=== PATIENT | female | born 1990 | race Caucasian/White ===

== ENCOUNTER 2016-04-28 12:57 | Observation (INO) ==
[2016-04-28] MEDS ORDERED: 0.9 % Sodium Chloride 1,000 ML IVC ONE (13:14)
[2016-04-28] MEDS ORDERED: *HR* HYDROmorphone (PF) 1 MG/ML SYRINGE IVP ONE (13:14)
[2016-04-28] MEDS ORDERED: Ondansetron 4 MG/2 ML VIAL IVP ONE ×2 (13:14→17:08)
--- NOTE | 2016-04-28 13:20 | Emergency Department Note ---
Disposition Clinical Impression: RUQ pain, Acute cholecystitis Cholelithiasis Qualifiers: Cholelithiasis location: gallbladder Cholecystitis presence: with cholecystitis Disposition: Admitted As Inpatient Condition: Fair Referrals: NO,PCP [Primary Care Provider] - Forms: Work/School Release, ED Satisfaction Letter General Adult HPI - General Chief complaint: ED Abdominal Pain Stated complaint: ABD pain Time Seen by Provider: 04/28/16 13:07 Source: patient Limitations: no limitations Nursing Notes Reviewed: Yes Vital Signs Reviewed: Yes - History of Present Illness HPI Narrative: 25-year-old female who reports she has had right upper quadrant pain for approximately 2 days. She states it was sudden onset. She has no prior history of this. She went to the [place] emergency department. Her basic lab work and ordered an outpatient ultrasound. She went today for her ultrasound and was sent here by the tabular typist due to concern for cholecystitis. She denies any fever. She has nausea and vomiting. She reports no past medical history and does not take any medications. Trying to eat makes the pain worse. Nothing makes them better. Radiation: non-radiation Pain Severity: severe Pain Scale: 8 Associated symptoms: Reports: denies other symptoms Treatments Prior to Arrival: none - Related Data Previous Rx's Medication Instructions Recorded Tramadol HCl [Ultram] 50 mg PO QID PRN #20 tab 04/27/16 OxyCODONE/APAP 5/325 [Percocet 1 each PO Q4HR PRN #14 tablet 04/28/16 5/325 MG] Allergies Allergy/AdvReac Type Severity Reaction Status Date / Time No Known Allergies Allergy Verified 04/28/16 04:21 All systems ED: reviewed and negative except as stated. Constitutional: Reports: chills Cardiovascular: Denies: chest pain Gastrointestinal: Reports: abdominal pain, nausea, vomiting Genitourinary: Denies: dysuria Integumentary: Denies: rash Past Medical History - Past Medical History Medical history: Reports: no medical history Psychiatric history: Reports: no psych history WATCH ASSEMBLER history: Reports: no WATCH ASSEMBLER history - Social History Smoking Status: Never smoker Smokeless Tobacco Status: No Alcohol use: Reports: none Drug use: Reports: none Physical Exam - General Limitations: no limitations General appearance: alert, in no apparent distress - Head Head exam: atraumatic - Eye Eye exam: Present: normal appearance - ENT ENT exam: normal exam, normal oropharynx - Neck Neck exam: Present: normal inspection - Chest Chest inspection: Present: normal inspection - Respiratory Respiratory exam: Present: normal lung sounds bilaterally. Absent: respiratory distress - Cardiovascular Cardiovascular exam: Present: regular rate, normal rhythm - Abdominal Exam Abdominal exam: Present: soft, tenderness (Right upper quadrant with positive Mcmahan sign. She has no generalized peritonitis or rebound. She does have some guarding on the right upper quadrant) - Extremities Exam Extremities exam: Present: normal inspection - Back Exam Back exam: Present: normal inspection - Neurological Exam Neurological exam: Present: alert, oriented X3 - Psychiatric Psychiatric exam: Present: normal affect, normal mood - Skin Skin exam: Present: warm, dry Course Course Narrative: On reviewing the ultrasound was performed earlier today there is concern for gallbladder wall thickness and possible pericholecystic fluid. I review the labs were drawn at 4:30 this morning where she did not have an elevated transaminitis or elevated bilirubin. She also denied a white count. She is not febrile for us. She is uncomfortable but is not in acute distress. We will treat her symptomatically with IV fluids, antiemetics, pain medication. I have called the general surgeon terminal operations supervisor Dr. Lopez who will evaluate the patient in the emergency department. - Reevaluation(s) Reevaluation #1: Accepted by Dr Lopez for admission. Vital Signs Temperature 98.2 F 04/28/16 13:02 Pulse Rate 98 04/28/16 13:02 Respiratory Rate 18 04/28/16 13:02 Blood Pressure 138/87 04/28/16 13:02 O2 Sat by Pulse Oximetry 100 04/28/16 13:02 Temperature 98.2 F 04/28/16 13:02 Pulse Rate 92 04/28/16 13:35 Respiratory Rate 18 04/28/16 13:35 Blood Pressure 123/81 04/28/16 13:35 O2 Sat by Pulse Oximetry 99 04/28/16 13:35 Oxygen Delivery Oxygen Delivery Room Air Medical Decision Making - Medical Records Medical records reviewed: Yes I reviewed the patient's medical records. - Lab Data Lab results reviewed: Yes I reviewed the patient's lab results. - Radiology Data Radiology results reviewed: Yes I reviewed the patient's radiology results.
--- NOTE | 2016-04-28 13:34 | Emergency Department Note ---
Disposition Clinical Impression: RUQ pain, Cholelithiasis, Acute cholecystitis Disposition: Admitted As Inpatient Condition: Fair General Adult HPI - General Chief complaint: ED Abdominal Pain Stated complaint: ABD pain Time Seen by Provider: 04/28/16 13:07 Source: patient Limitations: no limitations - History of Present Illness Pain Scale: 8 Associated symptoms: Reports: denies other symptoms Treatments Prior to Arrival: none - Related Data Previous Rx's Medication Instructions Recorded Tramadol HCl [Ultram] 50 mg PO QID PRN #20 tab 04/27/16 OxyCODONE/APAP 5/325 [Percocet 1 each PO Q4HR PRN #14 tablet 04/28/16 5/325 MG] Allergies Allergy/AdvReac Type Severity Reaction Status Date / Time No Known Allergies Allergy Verified 04/28/16 14:23 Constitutional: Reports: chills Cardiovascular: Denies: chest pain Gastrointestinal: Reports: abdominal pain, nausea, vomiting Genitourinary: Denies: dysuria Integumentary: Denies: rash Past Medical History - Past Medical History Medical history: Reports: no medical history Psychiatric history: Reports: no psych history ROTARY SOIL STABILIZER history: Reports: no ROTARY SOIL STABILIZER history - Social History Smoking Status: Never smoker Smokeless Tobacco Status: No Alcohol use: Reports: none Drug use: Reports: none Physical Exam - General Limitations: no limitations General appearance: alert, in no apparent distress Course - Reevaluation(s) Reevaluation #1: I saw the patient with the resident, Dr. Caldera. Patient presents with right upper quadrant abdominal pain for the past 2 days. She had normal labs done this morning close to 5:00 in the morning but was sent over here for an ultrasound of the gallbladder. Ultrasound showed the presence of gallstones and some thickening of the gallbladder wall and some pericholecystic fluid and a positive sonographic Mcmahan sign. There was concern for acute cholecystitis. Patient was sent over here to the emergency department to be evaluated. On exam she has tenderness in the right upper quadrant. She looks uncomfortable. We gave her medications for symptom relief. We spoke to the surgeon asset protection specialist and his people are coming down to evaluate the patient to decide the proper way to proceed from here. Time: 13:33 Vital Signs Temperature 98.2 F 04/28/16 13:02 Pulse Rate 98 04/28/16 13:02 Respiratory Rate 18 04/28/16 13:02 Blood Pressure 138/87 04/28/16 13:02 O2 Sat by Pulse Oximetry 100 04/28/16 13:02 Temperature 97.8 F 04/28/16 21:42 Pulse Rate 61 04/28/16 21:42 Respiratory Rate 16 04/28/16 21:42 Blood Pressure 113/71 04/28/16 21:42 O2 Sat by Pulse Oximetry 99 04/28/16 21:42 Oxygen Delivery Oxygen Delivery Room Air Attestation Statement - Attestation Attestation: I, Dr. Deng, examined this patient [id number] and my medical decision- making was reviewed with Dr. Caldera, Resident Physician. I agree with the documented findings, disposition and treatment plan as described except to the extent set forth below. Please see my progress notes for details.
--- NOTE | 2016-04-28 14:57 | General Surg History&Physical ---
<Lloyd Ferro - Last Filed: 04/28/16 16:22> Date of Encounter: 04/28/16 Time of Encounter: 14:40 Assessment and Plan (1) Acute cholecystitis Current Visit: Yes Status: Acute Plan for laparoscopic cholecystectomy IV antibiotics IV fluids Supportive care/pain control (2) Cholelithiasis Current Visit: Yes Status: Acute See above plan Qualifiers: Cholelithiasis location: gallbladder Cholecystitis presence: with cholecystitis Cholecystitis acuity: acute (3) DVT prophylaxis Current Visit: Yes Status: Acute Heparin 5,000 SQ Q12H for DVT prophylaxis. History of Present Illness Chief complaint: abdominal pain HPI: Ms. Mota is a 25 year old female that presents to the ED for 2 days of burning pain in her RUQ, patient denies any history of similar pain. She states it is worse with deep inspiration. Currently pain is an 8/10 in severity, but at its worst is 10/10, with associated nausea and vomiting. Patient denies any blood in stool or emesis. Patient notes no BM for 2 days. She last ate last night as she was instructed to not eat 8 hrs prior to GB ultrasound today. Past Med Surg Social Fam HX - Past Medical History Medical history: other (multiple miscarriages, concerns for clotting disorder) Psychiatric history: anxiety - Past Surgical History Surgical History: no surgical history - Social History Smoking Status: Never smoker Smokeless Tobacco Status: No Alcohol use: none Drug use: none - Family History Father Hx Family Medical Disorders: Yes (DVT, clotting disorder) Medications and Allergies Tramadol HCl [Ultram] 50 mg PO QID PRN #20 tab 04/27/16 [Rx] OxyCODONE/APAP 5/325 [Percocet 5/325 MG] 1 each PO Q4HR PRN #14 tablet 04/28/16 [Rx] Allergies No Known Allergies Allergy (Verified 04/28/16 14:23) Review of Systems All systems PM: A 10-system review of systems was performed and is negative for pertinent findings except as documented above in the HPI. - Constitutional chills, fever(s) - EENT Nose, mouth and throat: no dizziness, no dysphagia - Cardiovascular no chest pain, no dyspnea, no edema, no lightheadedness - Respiratory pain on inspiration, no dyspnea - Gastrointestinal abdominal pain, nausea, vomiting, no diarrhea, no hematemesis - Genitourinary Genitourinary: no dysuria - Neurological no confusion, no syncope - Hematologic/Lymphatic other (states concerns for clots.) General Surgery Exam Initial Vital Signs Temp Pulse Resp BP Pulse Ox 98.2 F 98 18 138/87 100 04/28/16 13:02 04/28/16 13:02 04/28/16 13:02 04/28/16 13:02 04/28/16 13:02 - General physical appearance well developed, well nourished, moderate pain - Eyes PERRL, normal ocular movement - ENT normal nares, normal mucosa, no congestion - Neck trachea midline - Respiratory clear to auscultation. negative: normal respiratory effort (decreased with pain ) - Cardiovascular Cardiovascular exam: Present: RRR, 15, 16 - Abdomen Abdomen general surgery: Present: bowel sounds present, soft, tender ( tenderness worst in the RUQ.) - Integumentary Integumentary general surgery: Present: warm and dry, no abnormal pigmentation - Neurologic Present: CN 2-12 grossly intact - Musculoskeletal Present: normal gait - Psychiatric Psychiatric general surgery: Present: appropriate, oriented to person, oriented to place, oriented to time, speech is normal, memory intact, tearful (worried) Results - Labs All other labs normal. <Parker Lopez - Last Filed: 04/28/16 16:39> Date of Encounter: 04/28/16 History of Present Illness HPI: Ms. Mota is a 25 year old female Review of Systems All systems PM: A 10-system review of systems was performed and is negative for pertinent findings except as documented above in the HPI. General Surgery Exam Initial Vital Signs Temp Pulse Resp BP Pulse Ox 98.2 F 98 18 138/87 100 04/28/16 13:02 04/28/16 13:02 04/28/16 13:02 04/28/16 13:02 04/28/16 13:02 Results - Labs All other labs normal. - Attending Attestation My signature below is to certify that this patient is under my care and that I, or nurse practitioner, or a physician's central supply assistant working with me, has a face-to -face encounter with this patient. The patient has recalcitrant biliary colic and possibly acute cholecystitis. I have recommended laparoscopic cholecystectomy and intraoperative cholangiogram. Proceed on an urgent basis. Parker Lopez MD
[2016-04-28] MEDS ORDERED: Naloxone 0.4 MG/ML INJ IVP PRN ×3 (15:57→18:43)
[2016-04-28] MEDS ORDERED: Ondansetron 4 MG/2 ML VIAL IVP PRN ×2 (15:57→18:43)
[2016-04-28] MEDS ORDERED: *HR* HYDROmorphone (PF) 1 MG/ML SYRINGE IVP PRN ×2 (15:58→18:43)
[2016-04-28] MEDS ORDERED: 0.9 % Sodium Chloride 1,000 ML IVC SCH (16:00)
[2016-04-28] MEDS ORDERED: Piperacillin/Tazobactam 3.375 GM in D5% in Water (Mini-Bag+) 100 ML IVPB SCH (16:00)
--- NOTE | 2016-04-28 16:03 | Anesthesia Evaluation PreOp ---
Date of Encounter: 04/28/16 Time of Encounter: 16:01 - Past History Planned Operation: lap placido c gram Cardiac History: Denies any Significant Hx Pulmonary History: Denies Any Significant HX LIFE SKILLS SPECIALIST History: Denies Any Significant HX Other Medical History: Denies Any Significant HX Anesthesia History: Past Anesthesia (denies fh anesthetic complications) Alcohol Use: none Drug use: none Medications and Allergies Tramadol HCl [Ultram] 50 mg PO QID PRN #20 tab 04/27/16 [Rx] OxyCODONE/APAP 5/325 [Percocet 5/325 MG] 1 each PO Q4HR PRN #14 tablet 04/28/16 [Rx] Allergies No Known Allergies Allergy (Verified 04/28/16 14:23) - Meds/Allergy Pre-op Review Medications Reviewed: Yes Allergies Reviewed: Yes Beta Blockers on Current Med List: No Anesthesia Results - Labs Laboratory Tests 04/26/16 04/28/16 04/28/16 23:35 04:30 04:30 Hgb 11.8 Hct 37.0 Plt Count 345 PT 11.8 INR 1.1 APTT 34.0 Sodium 139 Potassium 4.3 Creatinine 0.78 Anesthesia Exam O2 Sat Height 1.63 m Weight 116.12 kg O2 Sat by Pulse Oximetry 98 O2 Sat by Pulse Oximetry 99 O2 Sat by Pulse Oximetry 99 O2 Sat by Pulse Oximetry 100 Vital Signs Temp Pulse Resp BP Pulse Ox 98.2 F 98 18 138/87 100 04/28/16 13:02 04/28/16 13:02 04/28/16 13:02 04/28/16 13:02 04/28/16 13:02 Height: 1.63 Weight: 116 NPO (# of Hours): >8 - HEENT Pupil (Motor): Pupils equal, EOMI Mallampati: II Teeth: Normal Oral Opening: Greater than 3 - LIFE SKILLS SPECIALIST LOC: Oriented LIFE SKILLS SPECIALIST Motor: Normal RUE, Normal LUE, Normal RLE, Normal LLE, Normal Face LIFE SKILLS SPECIALIST Sensory: Normal: RUE, LUE, RLE, LLE, Face - Cardiac Rhythm: Regular Murmur: None - Pulmonary Breath Sounds: bilateral Clear Respiratory Effort: Symmetrical Anesthesia Assess/Plan ASA Score: 3 (bmi >40) Modified Nohemi Scale for Level of Consciousness: Cooperative, oriented, and tranquil Anesthetic Plan: General Monitoring Plan: Standard Monitors Recovery Plan: PACU
[2016-04-28] MEDS ORDERED: Lidocaine -MPF 2% 2 ML VIAL ONE (16:28)
[2016-04-28] MEDS ORDERED: Dexamethasone 4 MG/ML VIAL ONE (16:28)
[2016-04-28] MEDS ORDERED: *HR* Rocuronium Bromide 50 MG/5 ML VIAL ONE (16:28)
[2016-04-28] MEDS ORDERED: Ondansetron 4 MG/2 ML VIAL ONE (16:28)
[2016-04-28] MEDS ORDERED: *HR* Midazolam HCl 2 MG/2 ML VIAL ONE ×2 (16:28→16:29)
[2016-04-28] MEDS ORDERED: *HR* Propofol 200 MG/20 ML VIAL IVP ONE (16:28)
[2016-04-28] MEDS ORDERED: Lidocaine -MPF 4% 5 ML AMPUL ONE (16:28)
[2016-04-28] MEDS ORDERED: *HR* HYDROmorphone 2 MG/ML SYRINGE ONE (16:29)
[2016-04-28] MEDS ORDERED: CefOXitin 2,000 MG VIAL IVPB ONE (16:55)
[2016-04-28] MEDS ORDERED: *HR* Meperidine 25 MG/ML SYRINGE IVP PRN (17:08)
[2016-04-28] MEDS ORDERED: Albuterol 2.5 MG/3 ML NEBULIZER IH ONE (17:08)
[2016-04-28] MEDS ORDERED: *HR* Promethazine 25 MG/ML VIAL IVP PRN (17:08)
[2016-04-28] MEDS ORDERED: Ringers Solution, Lactated 1,000 ML IVC SCH (17:15)
[2016-04-28] MEDS ORDERED: Neostigmine Methylsulfate 3 MG/3 ML SYRINGE ONE (17:41)
--- NOTE | 2016-04-28 17:55 | Operative Note ---
Date of procedure: 04/28/16 Pre-op diagnosis: Acute cholecystitis and cholelithiasis Post-op diagnosis: other (Gangrenous gallbladder with visible pus) Procedure: Laparoscopic cholecystectomy, cholangiogram Anesthesia: LESIA Surgeon: Parker Lopez Estimated blood loss (cc): 25 Specimen: Gallbladder and contents Condition: stable Disposition: PACU Procedure in Detail: Laparoscopic cholecystectomy and intraoperative cholangiogram Operative procedure after informed consent and appropriate patient identification timeout the patient's take major operating suite and placed supine position given adequate general endotracheal anesthesia the abdomen is prepped and draped in sterile fashion utilizing ChloraPrep standard draping techniques timeout was taken patient is identified. I made a vertical midline incision below the umbilicus dissected down to level of fascia there are 2 traction stitches placed in the abdominal cavity was entered visually. A Mccoy trocar was placed in the abdomen and the abdomen was insufflated to 15 mmHg pressure CO2 the gallbladder was visualized. A placement 11 port in the subxiphoid area and 2 5 mm ports in the subcostal area. The gallbladder was gangrenous and sustained bile green. I decompressed the gallbladder with a decompression needle. The gallbladder was grasped and elevated. A variety of blunt and sharp dissection techniques were used to isolate the cystic duct and cystic artery. The cystic artery was controlled with 2 surgical clips proximally and one distally and it was divided I placed a surgical clip on the neck the gallbladder and obtained an intraoperative cholangiogram using 10 mL of Isovue. Intraoperative cholangiogram was normal. The cholangiocatheter was removed and the cystic duct was controlled with 2 surgical clips proximally and was divided the gallbladder was removed from the gallbladder fossae using electrocautery. The gallbladder was removed through the #11 port site. I replaced the #11 port and irrigated with copious amounts of antibiotic containing solution. There is no evidence of bleeding or bile leak. All trochars were removed. Fascia was closed with 0 Vicryl skin with 2- 0 and 4-0 Vicryl she tolerated the procedure well and was transferred to recovery in stable condition
[2016-04-28] MEDS: *HR* HYDROmorphone (PF) 1 MG/ML SYRINGE IVP PRN ×2 (18:11→18:16)
[2016-04-28] MEDS ORDERED: Ketorolac 30 MG/ML VIAL IVP ONE (18:20)
--- NOTE | 2016-04-28 18:39 | Anesthesia Evaluation Post Op ---
Date of Encounter: 04/28/16 Time of Encounter: 18:39 - Vital Signs Vital Signs: Vital Signs/O2 Sat/Glucose, Most Current Temp Pulse Resp BP Pulse Ox 04/28/16 18:32 97.7 F 89 14 131/90 99 04/28/16 18:22 84 14 124/82 98 04/28/16 18:12 87 14 130/84 99 04/28/16 18:02 97.8 F 86 16 137/96 99 04/28/16 15:44 97.8 F 87 18 121/76 98 - Lungs Lungs: Clear Ascult./Percussion - Airway Airway: Non-obstructed - Cardiovascular Regular Rate - Mental Status Mental Status: Asleep with brisk response to light stimulation - Pain Pain Scale: 0 Pain Scale used: Numeric (1 - 10) - Nausea Vomiting Nausea Vomiting: Not Present - Hydration Hydration: NPO - Discharge PostOp Status: Transfer Patient to floor
[2016-04-28] MEDS ORDERED: *HR* Heparin 5,000 UNIT/ML VIAL SQ SCH (19:00)
[2016-04-28] MEDS: 0.9 % Sodium Chloride 1,000 ML IVC SCH (19:35)
[2016-04-28] MEDS: *HR* Heparin 5,000 UNIT/ML VIAL SQ SCH (19:35)
[2016-04-28] MEDS: Piperacillin/Tazobactam 3.375 GM in D5% in Water (Mini-Bag+) 100 ML IVPB SCH (23:21)
[2016-04-29 05:20] LABS: Basophils % 0.1 %; Hematocrit 32.2 % (35.3-44.9); Hemoglobin 9.9 g/dL (11.5-15.4); Immature Granulocytes % 0.3 % (0-4); Lymphocytes # 0.5 K/mcL (0.6-4.6); Lymphocytes % 6.9 %; Mean Corpuscular HGB Conc 30.7 g/dL (31.6-35.5); Mean Corpuscular Hemoglobin 26.7 pg (28.0-33.3); Mean Corpuscular Volume 86.8 fL (83.0-100.0); Mean Platelet Volume 9.7 fL (9.4-12.4); Monocytes # 0.3 K/mcL (0.0-1.3); Monocytes % 3.6 %; Neutrophils # 6.7 K/mcL (1.6-8.9); Platelet Count 278 K/mcL (140-400); Red Blood Count 3.71 M/mcL (3.82-4.97); Red Cell Distribution Width 13.4 % (11.5-14.5); Segmented Neutrophils % 89.1 %
[2016-04-29 05:35] LABS: Alanine Aminotransferase 14 Units/L (0-55); Albumin 2.8 g/dL (3.5-5.0); Albumin/Globulin Ratio 0.8 (1.1-2.2); Alkaline Phosphatase 63 Units/L (38-126); Aspartate Amino Transferase 47 Units/L (5-34); BUN/Creatinine Ratio 7 (6-26); Bilirubin,Total 0.6 mg/dL (0.2-1.2); Calcium 8.7 mg/dL (8.6-10.8); Carbon Dioxide 23 mEq/L (19-29); Chloride 106 mEq/L (98-109); Globulin 3.3 g/dL (2.4-3.5); Glucose 117 mg/dL (70-99); Osmolality,Calculated 282 (280-300); Potassium 4.4 mEq/L (3.5-4.5); Sodium 137 mEq/L (136-145); Total Protein 6.1 g/dL (6.0-8.3); eGFR For African Americans > 60 (> 60); eGFR For Non-African Americans > 60 (> 60)
[2016-04-29 05:44] LABS: Blood Urea Nitrogen 5 mg/dL (7-20)
[2016-04-29] MEDS: *HR* Heparin 5,000 UNIT/ML VIAL SQ SCH (06:11)
[2016-04-29] MEDS: 0.9 % Sodium Chloride 1,000 ML IVC SCH (06:13)
[2016-04-29] MEDS ORDERED: *HR* OxyCODONE/APAP 5/325 TABLET PO PRN ×2 (07:00)
[2016-04-29] MEDS: Piperacillin/Tazobactam 3.375 GM in D5% in Water (Mini-Bag+) 100 ML IVPB SCH (09:13)
[2016-04-29 11:24] VITALS: BP 119/71
--- NOTE | 2016-04-29 11:50 | Discharge Summary ---
<Sil Moraes John - Last Filed: 04/29/16 11:46> Date of Encounter: 04/29/16 Time of Encounter: 11:45 - Discharge Diagnosis (1) Acute cholecystitis Priority: Primary Status: Resolved - Discharge Medications Prescriptions: OxyCODONE/APAP 5/325 [Percocet 5/325 MG] 1 each PO Q6HR PRN #30 tablet PRN Reason: Moderate Pain Amoxicillin/Clavulanate [Augmentin] 875 mg PO BIDWM #10 tablet Docusate [Colace] 100 mg PO BID #30 capsule Simethicone [Gas-X] 80 mg PO TID #20 tab.chew Home Medications: Tramadol HCl [Ultram] 50 mg PO QID PRN #20 tab 04/27/16 [Rx] OxyCODONE/APAP 5/325 [Percocet 5/325 MG] 1 each PO Q4HR PRN #14 tablet 04/28/16 [Rx] Amoxicillin/Clavulanate [Augmentin] 875 mg PO BIDWM #10 tablet 04/29/16 [Rx] Docusate [Colace] 100 mg PO BID #30 capsule 04/29/16 [Rx] OxyCODONE/APAP 5/325 [Percocet 5/325 MG] 1 each PO Q6HR PRN #30 tablet 04/29/16 [Rx] Simethicone [Gas-X] 80 mg PO TID #20 tab.chew 04/29/16 [Rx] Allergies/Adverse Reactions: Allergies No Known Allergies Allergy (Verified 04/28/16 14:23) General Surgery Exam Initial Vital Signs Temp Pulse Resp BP Pulse Ox 98.2 F 98 18 138/87 100 04/28/16 13:02 04/28/16 13:02 04/28/16 13:02 04/28/16 13:02 04/28/16 13:02 - General physical appearance well developed, well nourished, no distress - Eyes normal ocular movement - ENT normal mucosa, atraumatic, normocephalic - Neck trachea midline - Respiratory normal respiratory effort, clear to auscultation - Cardiovascular Cardiovascular exam: Present: RRR - Abdomen Abdomen general surgery: Present: bowel sounds present, soft, tender (expected postoperative tenderness) - Incision Incision: Present: clean and dry, intact - Integumentary Integumentary general surgery: Present: warm and dry - Neurologic Present: CN 2-12 grossly intact - Psychiatric Psychiatric general surgery: Present: A&Ox3 Date of admission: 04/28/16 14:17 Primary care physician: PCP AVA Discharging clinician: Parker Lopez (Rafael Moraes) Anticipated date of discharge: 04/29/16 - Patient Status Disposition: Home, Self-Care Condition: Good Functional capacity at discharge: independent ambulation Overall status at discharge: patient is progressing back to baseline - Discharge Instructions Instructions: Laparoscopic Cholecystectomy (DC) Follow Up With: AVA,PCP [Non-Partnered Physician] - Sil Moraes COOK BOAT [Advanced Practice Nurse] - 05/12/16 9:15 am (surgery follow-up) Forms: Work/School Release - Diet and Activity Activity: other (See additional instructions above) Diet: advance to your usual diet - Hospital Course Hospital course: Ms. Mota is a 25 year old female admitted to the hospital for acute cholecystitis. She was started on IV antibiotics and taken to the operating room for a Laparoscopic cholecystectomy with cholangiogram with Dr. Lopez. On POD #1, she is tolerating a diet without nausea/vomiting, her pain is controlled , her vitals are stable and she is afebrile, she is voiding and ambulating without difficulty. We will begin discharge planning and plan for outpatient follow-up in the next 10-14 days. - Time Spent with Patient Total time spent providing and/or coordinating discharge services: Less than 30 minutes Labs on day of discharge: Labs from last 24 hours 04/29/16 04/29/16 05:08 05:08 WBC 7.5 RBC 3.71 L Hgb 9.9 L D Hct 32.2 L MCV 86.8 MCH 26.7 L MCHC 30.7 L RDW 13.4 Plt Count 278 MPV 9.7 Immature Gran % 0.3 Seg Neutrophils % 89.1 Lymphocytes % 6.9 Monocytes % 3.6 Eosinophils % 0.0 Basophils % 0.1 Neutrophils # 6.7 Lymphocytes # 0.5 L Monocytes # 0.3 Eosinophils # 0.0 Basophils # 0.0 Sodium 137 Potassium 4.4 Chloride 106 Carbon Dioxide 23 BUN 5 L Creatinine 0.72 Est GFR ( Amer) > 60 Est GFR (Non-Af Amer) > 60 BUN/Creatinine Ratio 7 Glucose 117 H Calculated Osmolality 282 Calcium 8.7 Total Bilirubin 0.6 AST 47 H ALT 14 Alkaline Phosphatase 63 Serum Total Protein 6.1 Albumin 2.8 L Globulin 3.3 Albumin/Globulin Ratio 0.8 L - Attending Attestation I examined this patient and my medical decision-making was reviewed with the CUFFING MACHINE OPERATOR/PA/Advanced Practice Nurse/Resident Physician. I agree with the documented findings, disposition and treatment plan as described except to the extent set forth below. <Parker Lopez - Last Filed: 05/02/16 08:58> General Surgery Exam Initial Vital Signs Temp Pulse Resp BP Pulse Ox 98.2 F 98 18 138/87 100 04/28/16 13:02 04/28/16 13:02 04/28/16 13:02 04/28/16 13:02 04/28/16 13:02 Date of admission: 04/28/16 14:17 Primary care physician: Kelby Morris MD - Hospital Course Hospital course: Ms. Mota is a 25 year old female - Time Spent with Patient Total time spent providing and/or coordinating discharge services: - Attending Attestation Parker Lopez MD FACS
== END 2016-04-29 13:55 | disposition home or self-care (01) ==
LOC: EMEROO 12:57 → 3ANU 12:57
PROVIDERS: ADMIT Surgery; ATTEND Surgery